=== PATIENT | male | born 1995 | race African-American/Black ===

== ENCOUNTER 2017-04-29 07:41 | Inpatient (IN) | payer MEDICAID ==
[~2017-04-29] VITALS: Ht 185.4 cm; Wt 90.6 kg
[2017-04-29] MEDS ORDERED: LORazepam 2MG/ML-1ML VIAL ONE (07:59)
[2017-04-29] MEDS ORDERED: LORazepam 2MG/ML-1ML VIAL IV ONE (08:15)
[2017-04-29] MEDS ORDERED: SODIUM CHLORIDE 0.9% 1,000 ML IV ONE ×3 (08:20→11:30)
[2017-04-29] MEDS ORDERED: diphenhdrAMINE HCL 50 MG/1 ML VL IV ONE (08:30)
[2017-04-29] MEDS ORDERED: LEVETIRACETAM INJ 1,000 MG in SODIUM CHL 0.9% 100 ML IV ONE (08:30)
[2017-04-29] MEDS ORDERED: HALOPERIDOL LACTATE 5 MG/ML INJ VIAL IM ONE (08:30)
[2017-04-29] MEDS ORDERED: DIAZEPAM 5 MG/ML 2ML SYRG IV ONE ×2 (08:30→09:05)
[2017-04-29] MEDS ORDERED: MIDAZOLAM HCL 5 MG/ML-1ML VIAL ONE (09:02)
[2017-04-29] MEDS ORDERED: DIAZEPAM 5 MG/ML 2ML SYRG ONE (09:04)
[2017-04-29] MEDS ORDERED: ETOMIDATE (2MG/ML) 20ML VIAL IV ONE ×3 (09:54→10:15)
[2017-04-29] MEDS ORDERED: SUCCINYLCHOLINE CHLORIDE 20 MG/ML 10ML VIAL IV ONE ×2 (10:00→10:15)
[2017-04-29 10:18] LABS: Urine Bilirubin Negative (Negative); Urine Color Yellow (Yellow); Urine Glucose Normal (Normal); Urine Nitrite Negative (Negative); Urine RBC 2 /hpf (0 - 3); Urine Urobilinogen Normal (Negative); Urine pH 5.5 (5.0-8.0)
[2017-04-29] MEDS: MIDAZOLAM DRIP 50 mg/50mL NS 50 ML IV SCH ×2 (10:19→16:00)
[2017-04-29 10:20] LABS: Urine Blood 2+ /uL (Negative); Urine Ketone 1+ (Negative)
[2017-04-29] MEDS ORDERED: ROCURONIUM 10MG/ML 10ML VIAL IV ONE ×2 (10:30→10:45)
[2017-04-29 10:40] LABS: CONDITION Y; Hematocrit 49.1 % (41.0-53.0); Hemoglobin 17.1 g/dL (13.5-17.5); Mean Corpuscular Hemoglobin 32.1 pg (28.0-32.0); Mean Corpuscular Hgb Conc. 34.8 g/dL (32.0-36.0); Mean Corpuscular Volume 92.1 fL (80.0-100.0); Mean Platelet Volume 9.4 fL (7.4-10.4); Platelet Count (auto) 272 10^3/uL (140-450); Red Cell Distribution Width 13.3 % (11.6-16.0); SUSPECT SEE PRINTOUT; White Blood Cell 29.4 10^3/uL (4.4-10.8)
[2017-04-29 10:57] LABS: Albumin 4.3 g/dL (3.4-5.0); BUN/Creatinine Ratio 7.8; Bilirubin, Total 1.3 mg/dL (0.2-1.0); Total Protein 8.2 g/dL (6.4-8.2)
[2017-04-29 11:00] LABS: INR 0.98 (0.9-1.15); Partial Thromboplastin Time 23.2 sec (22.64-33.71); Prothrombin Time 10.7 sec (9.37-12.3)
[2017-04-29 11:06] LABS: Metamyelocytes % 0; Myelocytes % 0; Promyelocytes % 0; Reactive Lymphocytes 0
[2017-04-29 11:10] LABS: Platelet Estimate Adequate
[2017-04-29 11:11] LABS: Stomatocytes Few
[2017-04-29] MEDS ORDERED: ACETAMINOPHEN 650 mg PER 20 mL UD GT ONE (11:30)
[2017-04-29] MEDS ORDERED: cefTRIAXone 1GM/50ML D5W 50 ML IV ONE (11:30)
[2017-04-29] MEDS ORDERED: PROPOFOL 100 ML IV ONE (11:40)
[2017-04-29 11:52] LABS: Allen Test Yes; Base Excess -8.5 mmol/L (-2.0-2.0); Blood 02Sat 97.3 % (96-100); Blood COHb 0.1 % (0.5-1.5); Blood MetHb 0.6 % (0.0-1.5); HCO3 18.5 mmol/L (22-26.0); HHb 2.7 % (0.0-5.0); MODE VENT - A/C; O2Hb 96.6 % (94.0-97.0); PCO2 43.3 mmHg (35.0-45.0); PCO2(T) 43.3 mmHg (35.0-45.0); PO2 93.7 mmHg (80.0-100.0); PO2(T) 93.7 mmHg (80.0-100.0); Sample Type Arterial; pH 7.249 (7.350-7.450)
[2017-04-29] MEDS: PROPOFOL 100 ML IV SCH ×2 (12:01→16:00)
[2017-04-29 12:06] LABS: Lactic Acid w/Reflex 2.1 mmol/L (0.4-2.0)
[2017-04-29 12:15] LABS: REFLEX LACTIC ACID YES OR NO YES
[2017-04-29] MEDS ORDERED: SODIUM CHLORIDE 0.9% 2,000 ML IV ONE (12:30)
[2017-04-29] MEDS ORDERED: metroNIDAZOLE 500MG/100ML 100 ML IV ONE ×2 (13:15)
[2017-04-29] MEDS ORDERED: PIPERACILLIN-TAZOB 3.375GM 100 ML IV ONE (13:30)
[2017-04-29 14:35] VITALS: BP 110/72
[2017-04-29] MEDS ORDERED: DOPamine 1600MCG/ML 250 ML IV ONE (15:00)
[2017-04-29] MEDS ORDERED: HYDROcodone-ACET 5/325MG TAB PO PRN (16:15)
[2017-04-29] MEDS ORDERED: MORPHINE SULFATE 4 MG/ML SYRG IV PRN (16:15)
[2017-04-29] MEDS ORDERED: CEFTRIAXONE SODIUM 2 GM in D5W 5% 50 ML IV ONE (16:15)
[2017-04-29] MEDS ORDERED: DOCUSATE SOD 100 MG CAP PO PRN (16:15)
[2017-04-29] MEDS ORDERED: METOCLOPRAMIDE HCL 5MG/ml INJ 2ml VIAL IV PRN (16:15)
[2017-04-29] MEDS ORDERED: ONDANSETRON HCL 4 MG/2 ML VIAL IV PRN (16:15)
[2017-04-29 16:40] LABS: TUBE NUMBER TUBE 3
[2017-04-29 18:04] VITALS: BP 142/60
[2017-04-29 19:57] VITALS: BP 127/59
[2017-04-29] MEDS: SODIUM CHLORIDE 0.9% 1,000 ML IV SCH (20:25)
[2017-04-29 21:08] LABS: Allen Test Yes; Base Excess -5.5 mmol/L (-2.0-2.0); Blood 02Sat 99.1 % (96-100); Blood COHb 0.1 % (0.5-1.5); Blood MetHb 0.7 % (0.0-1.5); HCO3 20.2 mmol/L (22-26.0); HHb 0.9 % (0.0-5.0); MODE VENT - A/C; O2Hb 98.3 % (94.0-97.0); PCO2 40.1 mmHg (35.0-45.0); PCO2(T) 40.1 mmHg (35.0-45.0); PO2 521.8 mmHg (80.0-100.0); PO2(T) 521.8 mmHg (80.0-100.0); Room 1010-ERT; Sample Type Arterial; pH 7.319 (7.350-7.450)
[2017-04-29 22:15] VITALS: BP 124/68
[2017-04-29] MEDS ORDERED: ALBUMIN 5% 250 ML IV ONE (23:15)
[2017-04-29 23:47] LABS: Calcium 8.1 mg/dL (8.5-10.1); Potassium 3.9 mmol/L (3.5-5.1)
[2017-04-29 23:49] LABS: BUN/Creatinine Ratio 7.5
[2017-04-30] VITALS (11 sets, daily range): BP systolic 112–139; BP diastolic 53–75
[2017-04-30] MEDS: SODIUM CHLORIDE 0.9% 1,000 ML IV SCH ×4 (01:46→12:09)
[2017-04-30 06:45] LABS: Basophils # (auto) 0.1 uL; Basophils % (auto) 0.5 % (0.0-2.0); CONDITION Y; DEFINITIVE SEE PRINTOUT; Eosinophils # (auto) 0 uL; Hematocrit 38.2 % (41.0-53.0); Hemoglobin 13.2 g/dL (13.5-17.5); Lymphocytes # (auto) 0.8 uL; Lymphocytes % (auto) 4.6 % (10.0-50.0); Mean Corpuscular Hemoglobin 32.1 pg (28.0-32.0); Mean Corpuscular Hgb Conc. 34.6 g/dL (32.0-36.0); Mean Corpuscular Volume 92.9 fL (80.0-100.0); Mean Platelet Volume 9.5 fL (7.4-10.4); Monocytes % (auto) 11.1 % (0.0-12.0); Neutrophils # (auto) 14.8 uL; Neutrophils % (auto) 83.8 % (37.0-80.0); Platelet Count (auto) 160 10^3/uL (140-450); Red Cell Distribution Width 13.6 % (11.6-16.0); White Blood Cell 17.7 10^3/uL (4.4-10.8)
[2017-04-30 06:49] LABS: Albumin 3.1 g/dL (3.4-5.0); BUN/Creatinine Ratio 6.7; Calcium 8.2 mg/dL (8.5-10.1); Potassium 4.1 mmol/L (3.5-5.1)
[2017-04-30 06:52] LABS: Bilirubin, Total 1.5 mg/dL (0.2-1.0)
[2017-04-30] MEDS: PROPOFOL 100 ML IV SCH ×4 (08:20→20:59)
[2017-04-30 08:59] LABS: Allen Test Yes; Base Excess -8.2 mmol/L (-2.0-2.0); Blood 02Sat 97.2 % (96-100); Blood MetHb 0.6 % (0.0-1.5); HCO3 18.1 mmol/L (22-26.0); HHb 2.8 % (0.0-5.0); MODE VENT - A/C; O2Hb 96.6 % (94.0-97.0); PCO2 40.2 mmHg (35.0-45.0); PCO2(T) 40.2 mmHg (35.0-45.0); PO2 119.9 mmHg (80.0-100.0); PO2(T) 119.9 mmHg (80.0-100.0); Room 1010-ERT; Sample Type Arterial; pH 7.272 (7.350-7.450)
[2017-04-30] MEDS ORDERED: FUROSEMIDE 100 MG/10ML VIAL IV ONE (15:15)
[2017-04-30] MEDS ORDERED: SODIUM CHLORIDE 0.9% 2,000 ML IV ONE (15:15)
[2017-04-30] MEDS ORDERED: ACETAMINOPHEN 650 MG RECT SUPP PR PRN (16:15)
[2017-04-30] MEDS: MIDAZOLAM DRIP 50 mg/50mL NS 50 ML IV SCH (17:00)
[2017-04-30] MEDS: SODIUM BICARBONATE 50ML VIAL 150 ML in D5W 5% 1,000 ML IV SCH (17:27)
[2017-04-30] MEDS: THIAMINE INJ 100 MG, MULTIPLE VITAMIN 10 ML, FOLIC ACID 1 MG, MAGNESIUM SULF SDV 50% 8 ... IV SCH ×5 (18:41)
[2017-04-30 20:21] LABS: Potassium 4.3 mmol/L (3.5-5.1)
[2017-04-30 20:59] LABS: Allen Test Modified; Base Excess -6.3 mmol/L (-2.0-2.0); Blood 02Sat 97.7 % (96-100); Blood COHb 0.3 % (0.5-1.5); Blood MetHb 0.6 % (0.0-1.5); HCO3 17.9 mmol/L (22-26.0); HHb 2.3 % (0.0-5.0); MODE VENT - A/C; O2Hb 96.8 % (94.0-97.0); PCO2 31.7 mmHg (35.0-45.0); PCO2(T) 31.7 mmHg (35.0-45.0); PO2 136.5 mmHg (80.0-100.0); PO2(T) 136.5 mmHg (80.0-100.0); Room 1010-ERT; Sample Type Arterial; pH 7.369 (7.350-7.450)
[2017-04-30 23:36] LABS: Vitamin B12 332 pg/mL (211-911)
[2017-04-30 23:40] LABS: Temperature: 23.1 C (20.0-25.0)
[2017-05-01] VITALS (76 sets, daily range): BP systolic 99–142; BP diastolic 51–89
[2017-05-01] MEDS: SODIUM BICARBONATE 50ML VIAL 150 ML in D5W 5% 1,000 ML IV SCH ×4 (01:31→22:55)
[2017-05-01 05:43] LABS: Basophils # (auto) 0 uL; Basophils % (auto) 0.4 % (0.0-2.0); CONDITION Y; DEFINITIVE SEE PRINTOUT; Eosinophils # (auto) 0.1 uL; Eosinophils % (auto) 0.5 % (0.0-7.0); Hematocrit 36.4 % (41.0-53.0); Hemoglobin 12.4 g/dL (13.5-17.5); Lymphocytes # (auto) 1.8 uL; Lymphocytes % (auto) 13.6 % (10.0-50.0); Mean Corpuscular Volume 94.3 fL (80.0-100.0); Mean Platelet Volume 9.5 fL (7.4-10.4); Monocytes # (auto) 1.7 uL; Monocytes % (auto) 12.5 % (0.0-12.0); Neutrophils # (auto) 9.7 uL; Platelet Count (auto) 144 10^3/uL (140-450); White Blood Cell 13.3 10^3/uL (4.4-10.8)
[2017-05-01] MEDS: PROPOFOL 100 ML IV SCH ×2 (06:21→19:50)
[2017-05-01 06:22] LABS: Albumin 2.8 g/dL (3.4-5.0); BUN/Creatinine Ratio 6.8; Bilirubin, Total 0.6 mg/dL (0.2-1.0); Calcium 7.9 mg/dL (8.5-10.1); Phosphorus 4.3 mg/dL (2.5-4.90); Potassium 3.6 mmol/L (3.5-5.1); Total Protein 5.5 g/dL (6.4-8.2)
[2017-05-01 07:35] LABS: Base Excess -0.7 mmol/L (-2.0-2.0); Blood 02Sat 97.6 % (96-100); Blood COHb 0.7 % (0.5-1.5); Blood MetHb 0.3 % (0.0-1.5); HCO3 22.7 mmol/L (22-26.0); HHb 2.4 % (0.0-5.0); MODE VENT - A/C; O2Hb 96.6 % (94.0-97.0); PCO2 33.9 mmHg (35.0-45.0); PCO2(T) 33.9 mmHg (35.0-45.0); PO2 106.9 mmHg (80.0-100.0); PO2(T) 106.9 mmHg (80.0-100.0); Sample Type Arterial; pH 7.444 (7.350-7.450)
[2017-05-01] MEDS ORDERED: SODIUM CHLORIDE 0.9% 1,000 ML IV ONE (09:00)
[2017-05-01] MEDS: THIAMINE INJ 100 MG, MULTIPLE VITAMIN 10 ML, FOLIC ACID 1 MG, MAGNESIUM SULF SDV 50% 8 ... IV SCH ×5 (18:39)
[2017-05-01] MEDS: ACETAMINOPHEN 325 MG TAB PO PRN (18:40)
[2017-05-01] MEDS: MIDAZOLAM DRIP 50 mg/50mL NS 50 ML IV SCH (20:48)
[2017-05-02] VITALS (104 sets, daily range): BP systolic 123–182; BP diastolic 56–106
[2017-05-02] MEDS: MIDAZOLAM DRIP 50 mg/50mL NS 50 ML IV SCH (01:06)
[2017-05-02 04:09] LABS: Basophils # (auto) 0.1 uL; Basophils % (auto) 0.7 % (0.0-2.0); CONDITION Y; Eosinophils # (auto) 0.1 uL; Eosinophils % (auto) 0.5 % (0.0-7.0); Hematocrit 40.7 % (41.0-53.0); Hemoglobin 14.2 g/dL (13.5-17.5); Lymphocytes # (auto) 1.9 uL; Lymphocytes % (auto) 11.4 % (10.0-50.0); Mean Corpuscular Hemoglobin 32.5 pg (28.0-32.0); Mean Corpuscular Hgb Conc. 34.8 g/dL (32.0-36.0); Mean Corpuscular Volume 93.3 fL (80.0-100.0); Mean Platelet Volume 10.6 fL (7.4-10.4); Monocytes # (auto) 1.3 uL; Monocytes % (auto) 7.9 % (0.0-12.0); Neutrophils # (auto) 12.9 uL; Neutrophils % (auto) 79.5 % (37.0-80.0); Platelet Count (auto) 122 10^3/uL (140-450); Red Cell Distribution Width 13.3 % (11.6-16.0); White Blood Cell 16.2 10^3/uL (4.4-10.8)
[2017-05-02 04:23] LABS: Albumin 2.8 g/dL (3.4-5.0); BUN/Creatinine Ratio 7.9; Calcium 7.8 mg/dL (8.5-10.1); Potassium 3.9 mmol/L (3.5-5.1)
[2017-05-02 04:26] LABS: Bilirubin, Total 1.3 mg/dL (0.2-1.0); Total Protein 6.2 g/dL (6.4-8.2)
[2017-05-02] MEDS: SODIUM BICARBONATE 50ML VIAL 150 ML in D5W 5% 1,000 ML IV SCH (06:15)
[2017-05-02 07:49] LABS: Allen Test Yes; Blood 02Sat 61.7 % (96-100); MODE VENT - A/C; Sample Type Venous; Venous Blood COHb 0.9 % (0.5-1.5); Venous Blood Gas pH 7.459 (7.34-7.37); Venous Blood MetHb 0.3 % (0.0-1.5); Venous Blood PCO2 (T) 36.3 mmHg (44.0-46.0); Venous Blood PO2 < 35.0 mmHg (38.0-42.0); Venous Deoxyhemoglobin 37.8 % (0.0-5.0)
[2017-05-02] MEDS ORDERED: cefTRIAXone 1GM/50ML D5W 50 ML IV ONE (09:45)
[2017-05-02] MEDS ORDERED: TPN PER PHARMACY 0 ML IV SCH (10:00)
[2017-05-02] MEDS ORDERED: LIDOCAINE 1% HCL (LOCAL ANESTH.) INJ 20ML MDV ID ONE (12:15)
[2017-05-02 12:31] LABS: Magnesium 3.2 mg/dL (1.6-2.6); Phosphorus 2.2 mg/dL (2.5-4.90)
[2017-05-02] MEDS: D5W 5% 1,000 ML IV SCH ×3 (13:06→21:10)
[2017-05-02] MEDS ORDERED: LEVETIRACETAM INJ 1,000 MG in SODIUM CHL 0.9% 100 ML IV ONE (13:15)
[2017-05-02] MEDS: PANTOPRAZOLE SODIUM 40 MG/10 ML VIAL IV SCH (13:49)
[2017-05-02] MEDS ORDERED: PPN PER PHARMACY IV NR ×7 (20:00)
[2017-05-02] MEDS: PROPOFOL 100 ML IV SCH (21:44)
[2017-05-02] MEDS ORDERED: LEVETIRACETAM 500 MG/5ML INJ IV ONE (22:01)
[2017-05-02] MEDS: SODIUM CHLOR 0.9% PF (SALINE LOCK) 10ML VIAL IV SCH (22:13)
[2017-05-02] MEDS: LEVETIRACETAM INJ 500 MG in SODIUM CHL 0.9% 100 ML IV SCH (22:28)
[2017-05-02] MEDS: ACCU-CHEK COMFORT CURVE STRIP VI SCH (23:50)
[2017-05-02] MEDS: InsuLIN REG 1unit/0.01ml Soln (100units/ml) SC SCH (23:50)
[2017-05-03] VITALS (80 sets, daily range): BP systolic 110–175; BP diastolic 52–108
[2017-05-03] MEDS ORDERED: DEXTROSE (50%) 50ML SYRG IV SCH
[2017-05-03] MEDS: PROPOFOL 100 ML IV SCH (04:54)
[2017-05-03 05:04] LABS: Basophils # (auto) 0 uL; Basophils % (auto) 0.2 % (0.0-2.0); CONDITION Y; Eosinophils # (auto) 0.2 uL; Eosinophils % (auto) 1.8 % (0.0-7.0); Hematocrit 37.4 % (41.0-53.0); Hemoglobin 12.9 g/dL (13.5-17.5); Lymphocytes # (auto) 1.2 uL; Lymphocytes % (auto) 12.1 % (10.0-50.0); Mean Corpuscular Hemoglobin 32.2 pg (28.0-32.0); Mean Corpuscular Hgb Conc. 34.5 g/dL (32.0-36.0); Mean Corpuscular Volume 93.1 fL (80.0-100.0); Mean Platelet Volume 10.4 fL (7.4-10.4); Monocytes # (auto) 0.6 uL; Monocytes % (auto) 5.5 % (0.0-12.0); Neutrophils # (auto) 8.3 uL; Neutrophils % (auto) 80.4 % (37.0-80.0); Platelet Count (auto) 158 10^3/uL (140-450); Red Cell Distribution Width 13.5 % (11.6-16.0); White Blood Cell 10.3 10^3/uL (4.4-10.8)
[2017-05-03 05:24] LABS: Albumin 2.7 g/dL (3.4-5.0); BUN/Creatinine Ratio 9.4; Calcium 7.8 mg/dL (8.5-10.1); Magnesium 2.6 mg/dL (1.6-2.6)
[2017-05-03 05:40] LABS: Bilirubin, Total 0.6 mg/dL (0.2-1.0); Total Protein 5.8 g/dL (6.4-8.2)
[2017-05-03 05:55] LABS: Potassium 2.8 mmol/L (3.5-5.1)
[2017-05-03] MEDS: ACCU-CHEK COMFORT CURVE STRIP VI SCH ×4 (06:00→23:26)
[2017-05-03] MEDS: InsuLIN REG 1unit/0.01ml Soln (100units/ml) SC SCH ×4 (06:00→23:28)
[2017-05-03] MEDS: D5W 5% 1,000 ML IV SCH ×3 (06:00→21:00)
[2017-05-03 06:12] LABS: Phosphorus 3.7 mg/dL (2.5-4.90)
[2017-05-03] MEDS ORDERED: POTASSIUM CHLORIDE 40 MEQ, LIDOCAINE 1% (LOCAL ANESTH.) 4 ML in SODIUM CHL 0.9% 250 ML IV ONE (06:45)
[2017-05-03] MEDS: cefTRIAXone 1GM/50ML D5W 50 ML IV SCH (09:00)
[2017-05-03] MEDS: MIDAZOLAM DRIP 50 mg/50mL NS 50 ML IV SCH (09:55)
[2017-05-03] MEDS: SODIUM CHLOR 0.9% PF (SALINE LOCK) 10ML VIAL IV SCH ×2 (10:00→21:44)
[2017-05-03] MEDS: PANTOPRAZOLE SODIUM 40 MG/10 ML VIAL IV SCH (10:00)
[2017-05-03 10:35] LABS: Allen Test Yes; Blood 02Sat 97.8 % (96-100); Blood COHb 0.3 % (0.5-1.5); Blood MetHb 0.2 % (0.0-1.5); HCO3 24.9 mmol/L (22-26.0); HHb 2.2 % (0.0-5.0); MODE VENT - A/C; O2Hb 97.3 % (94.0-97.0); PO2 126.6 mmHg (80.0-100.0); PO2(T) 126.6 mmHg (80.0-100.0); Sample Type Arterial; pH 7.445 (7.350-7.450)
[2017-05-03] MEDS: LEVETIRACETAM INJ 500 MG in SODIUM CHL 0.9% 100 ML IV SCH ×2 (11:42→21:44)
[2017-05-03] MEDS ORDERED: POTASSIUM CHL 20MEQ/100ML 100 ML IV SCH (12:00)
[2017-05-03] MEDS ORDERED: POTASSIUM CHL 20 Meq TABLET PO ONE (16:15)
[2017-05-03] MEDS: POTASSIUM CHL 20MEQ/100ML 100 ML IV SCH ×3 (19:25→23:22)
[2017-05-03] MEDS ORDERED: TPN PER PHARMACY IV NR ×7 (20:00)
[2017-05-04] VITALS (38 sets, daily range): BP systolic 135–179; BP diastolic 70–103
[2017-05-04 04:04] LABS: Basophils # (auto) 0 uL; Basophils % (auto) 0.1 % (0.0-2.0); CONDITION Y; Eosinophils # (auto) 0.1 uL; Eosinophils % (auto) 0.7 % (0.0-7.0); Hemoglobin 12.4 g/dL (13.5-17.5); Lymphocytes # (auto) 0.9 uL; Lymphocytes % (auto) 8.6 % (10.0-50.0); Mean Corpuscular Hemoglobin 32.2 pg (28.0-32.0); Mean Corpuscular Hgb Conc. 34.6 g/dL (32.0-36.0); Mean Corpuscular Volume 93.1 fL (80.0-100.0); Mean Platelet Volume 10.1 fL (7.4-10.4); Monocytes # (auto) 0.6 uL; Monocytes % (auto) 6.1 % (0.0-12.0); Neutrophils # (auto) 8.4 uL; Neutrophils % (auto) 84.5 % (37.0-80.0); Platelet Count (auto) 131 10^3/uL (140-450); Red Cell Distribution Width 12.8 % (11.6-16.0)
[2017-05-04] MEDS: InsuLIN REG 1unit/0.01ml Soln (100units/ml) SC SCH (06:00)
[2017-05-04] MEDS: ACCU-CHEK COMFORT CURVE STRIP VI SCH (06:09)
[2017-05-04 06:16] LABS: BUN/Creatinine Ratio 8.1; Potassium 3.4 mmol/L (3.5-5.1)
[2017-05-04 06:17] LABS: Albumin 3.2 g/dL (3.4-5.0); Bilirubin, Total 1.1 mg/dL (0.2-1.0); Calcium 8.8 mg/dL (8.5-10.1); Magnesium 2.1 mg/dL (1.6-2.6); Total Protein 6.6 g/dL (6.4-8.2)
[2017-05-04] MEDS: cefTRIAXone 1GM/50ML D5W 50 ML IV SCH (09:01)
[2017-05-04] MEDS: D5W 5% 1,000 ML IV SCH (09:35)
[2017-05-04] MEDS: LEVETIRACETAM INJ 500 MG in SODIUM CHL 0.9% 100 ML IV SCH (10:00)
[2017-05-04] MEDS: SODIUM CHLOR 0.9% PF (SALINE LOCK) 10ML VIAL IV SCH ×2 (10:00→21:30)
[2017-05-04] MEDS ORDERED: ALPRAZolam 0.25 MG TAB PO PRN (10:30)
[2017-05-04] MEDS ORDERED: LEVETIRACETAM 500 MG TAB PO ONE (10:34)
[2017-05-04] MEDS: SODIUM CHLORIDE 0.9% 1,000 ML IV SCH ×2 (10:42→20:30)
[2017-05-04] MEDS: PANTOPRAZOLE SODIUM 40 MG/10 ML VIAL IV SCH (10:42)
[2017-05-04] MEDS ORDERED: LORazepam 2MG/ML-1ML VIAL ONE (16:49)
[2017-05-04] MEDS ORDERED: LORazepam 2MG/ML-1ML VIAL IV ONE (17:00)
[2017-05-04] MEDS: LEVETIRACETAM 500 MG TAB PO SCH (21:30)
[2017-05-05] VITALS (7 sets, daily range): BP systolic 124–139; BP diastolic 66–93
[2017-05-05] MEDS: ACETAMINOPHEN 325 MG TAB PO PRN (03:07)
[2017-05-05] MEDS: SODIUM CHLORIDE 0.9% 1,000 ML IV SCH ×2 (06:30→16:30)
[2017-05-05 08:49] LABS: Basophils # (auto) 0.1 uL; Basophils % (auto) 0.5 % (0.0-2.0); CONDITION Y; Eosinophils # (auto) 0.2 uL; Eosinophils % (auto) 1.1 % (0.0-7.0); Hematocrit 40.8 % (41.0-53.0); Hemoglobin 14.1 g/dL (13.5-17.5); Lymphocytes # (auto) 1.5 uL; Lymphocytes % (auto) 10.4 % (10.0-50.0); Mean Corpuscular Hgb Conc. 34.4 g/dL (32.0-36.0); Monocytes # (auto) 1.1 uL; Monocytes % (auto) 7.7 % (0.0-12.0); Neutrophils # (auto) 11.9 uL; Neutrophils % (auto) 80.3 % (37.0-80.0); Platelet Count (auto) 169 10^3/uL (140-450); Red Cell Distribution Width 13.2 % (11.6-16.0); White Blood Cell 14.8 10^3/uL (4.4-10.8)
[2017-05-05 09:11] LABS: Albumin 3.4 g/dL (3.4-5.0); BUN/Creatinine Ratio 9.2; Bilirubin, Total 0.9 mg/dL (0.2-1.0); Calcium 9.2 mg/dL (8.5-10.1); Magnesium 1.9 mg/dL (1.6-2.6); Phosphorus 3.7 mg/dL (2.5-4.90); Potassium 3.1 mmol/L (3.5-5.1)
[2017-05-05] MEDS: LEVETIRACETAM 500 MG TAB PO SCH ×2 (09:17→23:21)
[2017-05-05] MEDS: PANTOPRAZOLE SODIUM 40 MG/10 ML VIAL IV SCH (09:18)
[2017-05-05] MEDS: SODIUM CHLOR 0.9% PF (SALINE LOCK) 10ML VIAL IV SCH ×2 (09:18→23:20)
[2017-05-05] MEDS: cefTRIAXone 1GM/50ML D5W 50 ML IV SCH (09:18)
[2017-05-05] MEDS ORDERED: POTASSIUM CHLORIDE 40 MEQ, LIDOCAINE 1% (LOCAL ANESTH.) 4 ML in SODIUM CHL 0.9% 250 ML IV ONE (10:15)
[2017-05-05] MEDS ORDERED: ZOLPIDEM TARTRATE 5 MG TAB PO ONE ×2 (10:30→22:00)
[2017-05-06] MEDS: SODIUM CHLORIDE 0.9% 1,000 ML IV SCH ×2 (02:30→12:30)
[2017-05-06] MEDS ORDERED: HALOPERIDOL LACTATE 5 MG/ML INJ VIAL IM ONE (03:00)
[2017-05-06] MEDS ORDERED: HALOPERIDOL LACTATE 5 MG/ML INJ VIAL ONE (03:03)
[2017-05-06] MEDS ORDERED: HALOPERIDOL LACTATE 5 MG/ML INJ VIAL IM PRN (06:00)
[2017-05-06] MEDS ORDERED: POTASSIUM CHL 20 Meq TABLET PO ONE ×2 (08:45→11:15)
[2017-05-06] MEDS: cefTRIAXone 1GM/50ML D5W 50 ML IV SCH (09:00)
[2017-05-06 09:36] LABS: Basophils # (auto) 0 uL; CONDITION Y; Eosinophils # (auto) 0.1 uL; Eosinophils % (auto) 0.9 % (0.0-7.0); Hematocrit 41.7 % (41.0-53.0); Hemoglobin 14.2 g/dL (13.5-17.5); Lymphocytes # (auto) 1.2 uL; Lymphocytes % (auto) 8.8 % (10.0-50.0); Mean Corpuscular Hemoglobin 31.6 pg (28.0-32.0); Mean Corpuscular Hgb Conc. 34.2 g/dL (32.0-36.0); Mean Corpuscular Volume 92.6 fL (80.0-100.0); Mean Platelet Volume 9.4 fL (7.4-10.4); Monocytes # (auto) 0.7 uL; Monocytes % (auto) 4.9 % (0.0-12.0); Neutrophils # (auto) 11.7 uL; Neutrophils % (auto) 85.4 % (37.0-80.0); Platelet Count (auto) 203 10^3/uL (140-450); Red Cell Distribution Width 13.4 % (11.6-16.0); White Blood Cell 13.7 10^3/uL (4.4-10.8)
[2017-05-06 09:58] LABS: BUN/Creatinine Ratio 11.2; Calcium 9.1 mg/dL (8.5-10.1); Potassium 3.4 mmol/L (3.5-5.1)
[2017-05-06] MEDS: SODIUM CHLOR 0.9% PF (SALINE LOCK) 10ML VIAL IV SCH (10:00)
[2017-05-06] MEDS: LEVETIRACETAM 500 MG TAB PO SCH (11:18)
[2017-05-06 13:28] VITALS: BP 124/81
== END 2017-05-06 14:25 | DRG 720 ==
LOC: ER 07:50 → TELE 07:51 → ICU WEST 05-01 04:22 → CENTRAL 05-01 18:34 → ICU WEST 05-01 18:39 → TELE-CENTR 05-05 01:58
PROVIDERS: ADMIT Internal Medicine; ATTEND Internal Medicine
PROC: 5A1945Z Respiratory Ventilation, 24-96 Consecutive Hours (ICD-10-PCS; principal; 2017-04-29)
PROC: 0BH17EZ Insertion of Endotracheal Airway into Trachea, Via Natural or Artificial Opening (ICD-10-PCS; 2017-04-29)
PROC: 02HV33Z Insertion of Infusion Device into Superior Vena Cava, Percutaneous Approach (ICD-10-PCS; 2017-05-02)
DX: A41.9 Sepsis, unspecified organism (principal); N17.0 Acute kidney failure with tubular necrosis; J96.01 Acute respiratory failure with hypoxia; G92 Toxic encephalopathy; G40.401 Other generalized epilepsy and epileptic syndromes, not intractable, with status epilepticus; M62.82 Rhabdomyolysis; F12.10 Cannabis abuse, uncomplicated; F29 Unspecified psychosis not due to a substance or known physiological condition; Z82.0 Family history of epilepsy and other diseases of the nervous system
CPT/HCPCS: 31500; 36415; 36569; 36600; 51702; 62270; 70450; 71010; 74176; 80048; 80053; 80307; 81001; 82040; 82542; 82550; 82553; 82607; 82746; 82805; 82945; 82962; 83605; 83735; 84100; 84132; 84157; 84439; 84443; 84478; 84484; 85007; 85025; 85027; 85610; 85730; 87040; 87070; 87081; 87205; 89051; 92523; 93306; 94002; 94003; 95819; 96361; 96365; 96367; 96368; 99291; A4565; C9113; J0330; J0696; J1815; J2001; J2250; J2543; J2704; J3480; J3490; J7060

== ENCOUNTER 2019-01-21 10:45 | Emergency (ER) | payer MEDICAID ==
[~2019-01-21] VITALS: Ht 190.5 cm; Wt 84.8 kg
[2019-01-21 11:06] VITALS: BP 129/63
[2019-01-21] MEDS ORDERED: ONDANSETRON ODT 4 MG TAB PO ONE (11:45)
[2019-01-21] MEDS ORDERED: diphenhdrAMINE HCL 50 MG/1 ML VL IM ONE (11:45)
== END 2019-01-21 11:58 | disposition home or self-care (01) ==
LOC: ER 10:45
DX: F41.1 Generalized anxiety disorder (principal)
CPT/HCPCS: 96372; 99284; J1200; Q0162